=== PATIENT | female | born 1980 | race Caucasian/White ===

== ENCOUNTER 2018-02-17 12:42 | Day surgery (SDC) | payer OTHER, SELFPAY ==
[2018-02-06 15:21] VITALS: BMI 20.9
[2018-02-17] VITALS (8 sets, daily range): BP systolic 109–136; BP diastolic 70–97; PULSE 83–106; RESP 12–19; TEMP 35.9–37.1; O2SAT 97–100; BMI 20.1
--- NOTE | 2018-02-17 13:21 | SUR.OPER ---
Lithotomy on padded OR bed, head on pillow, arms secured on padded arm boards at <90 degrees abduction. Legs secured in padded yellow fins stirrups.
--- NOTE | 2018-02-17 13:33 | PM.PREOP ---
Pre-operative Note Interval Note Pre-op Check: Yes History & Physical Reviewed by Physician and Yes Exam Performed Changes: No
[2018-02-17] MEDS: LACTATED RINGERS 1,000 ML 42 ML IV ×2 (13:34→15:16)
[2018-02-17] MEDS: BUPIVACAINE 0.5% W/ EPI (PF) VIAL 30 ML INJ (14:07)
--- NOTE | 2018-02-17 14:46 | PM.OP.1 ---
Operative Date/Time/Diagnoses Date of procedure: 02/17/18 Time of procedure: 14:47 Pre-op diagnosis: Undesired fertility and menorrhagia Post-op diagnosis: same Procedure & Clinicians Procedure: Laparoscopic tubal ligation by fulguration and NovaSure endometrial ablation Same procedure as scheduled: Yes Indications: Menorrhagia and undesired fertility Anesthesia Type: General Operative Notes Findings: Normal tubes ovaries and uterus. No endometriosis. No internal hernias. No scar tissue. Closure Type: primary Specimen(s): none sent Estimated Blood Loss (mL): 5 Blood products transfused: none Procedure in detail: Patient was brought to the operating room where she underwent general anesthesia. She was placed in low yellowfin stirrups and prepped and draped in usual sterile fashion. No antibiotics were indicated. Pulsatile stockings were in place and functional. Warming was with blankets. A single-tooth tenaculum was placed on the anterior lip of the cervix and the cervix dilated to #6 Hegar dilator. A tenaculum was placed on the anterior lip of the cervix. The area of the incisions were injected with half percent Marcaine with epinephrine. An incision was made in the umbilicus with a scalpel and the Verres needle placed in the abdomen. Confirmation of correct placement of the needle was performed by withdrawing on the syringe and then allowing fluid to fall freely through the needle. The abdomen was insufflated to 4 L of CO2. A 5 mm trocar was placed under direct visualization. 2 other 5 mm trochars were placed in the right and left lower quadrant under direct visualization after incising the skin. There did not appear to be any damage with placement of the trocars. The right fallopian tube was grasped and cauterized and cut with the PK generator. Same procedure was performed on the left fallopian tube. Adequate hemostasis was noted. The CO2 was allowed to escape from the abdomen. The trochars were removed. Skin was closed with 4-0 Monocryl. Next the procedure was switched to the vaginal area. T cervix was dilated just enough to allow the placement of the NovaSure. The NovaSure sound was used to determine the length of the uterus which was over 5.0 cm. This was set on the NovaSure device. The device was placed in the uterus and the width determined to be 3 cm. The length and width were entered into the NovaSure machine. The plunger was pushed to the cervix to effect a good vacuum seal. This was documented by the machine. Cauterization was done with a total power of 83 and 60 seconds. The NovaSure array was pulled back into the device and then the device removed. Patient tolerated the procedure well. Counts of instruments and sponges were correct. Patient went to recovery room in good condition. Complications: none Condition: stable Disposition: same day surgery Plan for aftercare: Home when awake and stable
[2018-02-17] MEDS: fentaNYL 100 MCG/2 ML INJ 50 MCG IV (15:06)
== END 2018-02-17 15:55 | disposition home or self-care (01) ==
PROVIDERS: Visit Provider Specialist
PROC: (CPT 58671; principal; 2018-02-17 13:30)
PROC: 0U5B8ZZ Destruction of Endometrium, Via Natural or Artificial Opening Endoscopic (ICD-10-PCS; CPT 58563; 2018-02-17 13:30)
DX: N92.0 Excessive and frequent menstruation with regular cycle (principal); Z30.2 Encounter for sterilization
CPT/HCPCS: 58670; 58353; J1100; J2405; J2704; J3010